=== PATIENT | female | born 1965 | race Caucasian/White ===

== ENCOUNTER 2018-10-24 16:59 | Emergency (ER) | payer MEDICAID ==
[2018-10-24] MEDS: ONDANSETRON 4 MG INJ IV (17:45)
[2018-10-24] MEDS: SOD CHLORIDE 0.9% 500 ML IV (17:45)
[2018-10-24] MEDS: HYDROmorphONE 1 MG/ML SYG IV (17:45)
[2018-10-24 17:53] LABS: HEMOGLOBIN 14.1 g/dl (12.0-16.0); MEAN CORPUSCULAR HEMOGLOBIN 29.1 pg (29.0-33.0); MEAN CORPUSCULAR HGB CONC 32.8 g/dl (32.0-37.0); MEAN CORPUSCULAR VOLUME 88.7 fl (82.0-101.0); MEAN PLATELET VOLUME 9.7 fl (7.4-10.4); PLATELET COUNT 209 10^3/UL (140-415); RED BLOOD COUNT 4.85 10^6/ul (4.20-5.40); RED CELL DISTRIBUTION WIDTH 13.1 % (11.5-14.5)
[2018-10-24 18:02] LABS: POSITIVE DIFF @See below
[2018-10-24 18:03] LABS: ADD MAN DIFF? YES
[2018-10-24 18:06] LABS: CHLORIDE 102 mmol/L (97-110)
[2018-10-24 18:09] LABS: ALANINE AMINOTRANSFERASE 26 IU/L (13-69); ALBUMIN 4.4 g/dl (3.3-4.9); ALBUMIN/GLOBULIN RATIO 1.18; ALKALINE PHOSPHATASE 109 IU/L (42-121); ANION GAP 9 (5-13); ASPARTATE AMINO TRANSFERASE 27 IU/L (15-46); BILIRUBIN,INDIRECT 0.8 mg/dl (0-1.1); BILIRUBIN,TOTAL 0.8 mg/dl (0.2-1.3); BLOOD UREA NITROGEN 16 mg/dl (7-20); CALCIUM 9.5 mg/dl (8.4-10.2); CARBON DIOXIDE 27 mmol/L (21-31); CREATININE 0.71 mg/dl (0.44-1.00); Estimated GFR > 60 mL/min (>60); GLUCOSE 108 mg/dl (70-220); LIPASE 59 U/L (23-300); POTASSIUM 4.2 mmol/L (3.5-5.1); SODIUM 138 mmol/L (135-144); TOTAL PROTEIN 8.1 g/dl (6.1-8.1)
[2018-10-24 18:12] LABS: ADD UMIC YES; UR ASCORBIC ACID NEGATIVE (NEGATIVE); UR BACTERIA FEW /HPF (NONE SEEN); UR BILIRUBIN (Dip) NEGATIVE (NEGATIVE); UR BLOOD (Dip) NEGATIVE (NEGATIVE); UR CLARITY SLIGHTLY CLOUDY (CLEAR); UR COLOR YELLOW (YELLOW); UR GLUCOSE (Dip) NEGATIVE (NEGATIVE); UR KETONES (Dip) NEGATIVE (NEGATIVE); UR LEUKOCYTE ESTERASE (Dip) 3+ Leu/ul (NEGATIVE); UR NITRITE (Dip) NEGATIVE (NEGATIVE); UR NONSQUAMOUS EPITHELIAL CELL 2 /HPF (NONE SEEN); UR RBC 2 /HPF (0-5); UR SPECIFIC GRAVITY (Dip) 1.018 (1.003-1.030); UR SQUAMOUS EPITHELIAL CELL MANY /HPF (FEW); UR TOTAL PROTEIN (Dip) NEGATIVE (NEGATIVE); UR UROBILINOGEN (Dip) NEGATIVE (NEGATIVE); UR WBC 8 /HPF (0-5)
[2018-10-24 19:18] LABS: BAND NEUTROPHILS #M 0.3 10^3/ul (0.0-0.6); BAND NEUTROPHILS % (M) 5 % (0-4); LYMPHOCYTES #M 1.8 10^3/ul (0.8-2.9); LYMPHOCYTES % (M) 26 % (15-51); METAMYELOCYTES #M 0.1 10^3/ul (0.0-0.0); METAMYELOCYTES %M 2 % (0-0); MONOCYTE #M 0.1 10^3/ul (0.3-0.9); MONOCYTES % (M) 2 % (0-11); PLATELET ESTIMATE NORMAL; SEG NEUT #M 4.6 10^3/ul (1.6-7.5); SEGMENTED NEUTROPHILS (M) % 65 % (39-77); SMUDGE%M 4 % (0-0)
[2018-10-24] MEDS: CEFTRIAXONE 1 GM/50 ML (PMX) 50 ML IVPB (20:40)
[2018-10-24] MEDS: KETOROLAC 15 MG INJ IV (21:12)
== END 2018-10-24 22:50 | disposition home or self-care (01) ==
LOC: E/R 16:59
DX: R10.31 Right lower quadrant pain (principal)
CPT/HCPCS: 36415; 71045; 74176; 76705; 80053; 81001; 83690; 85025; 87086; 96374; 96375; 99285-25

== ENCOUNTER 2018-10-26 17:36 | Inpatient (IN) | payer MEDICAID ==
[2018-10-26] MEDS: HYDROmorphONE 1 MG/ML SYG IV (19:42)
[2018-10-26 19:44] LABS: HEMATOCRIT 38.8 % (37.0-47.0); HEMOGLOBIN 12.9 g/dl (12.0-16.0); MEAN CORPUSCULAR HEMOGLOBIN 29.3 pg (29.0-33.0); MEAN CORPUSCULAR HGB CONC 33.2 g/dl (32.0-37.0); MEAN PLATELET VOLUME 9.7 fl (7.4-10.4); PLATELET COUNT 172 10^3/UL (140-415); RED BLOOD COUNT 4.41 10^6/ul (4.20-5.40); RED CELL DISTRIBUTION WIDTH 12.9 % (11.5-14.5)
[2018-10-26 19:44] LABS: WHITE BLOOD COUNT 5.2 10^3/ul (4.8-10.8)
[2018-10-26 19:50] LABS: ADD MAN DIFF? YES; POSITIVE DIFF @See below
[2018-10-26 20:12] LABS: BAND NEUTROPHILS #M 0.5 10^3/ul (0.0-0.6); BAND NEUTROPHILS % (M) 11 % (0-4); BASOPHILS % (M) 1 % (0-2); EOSINOPHILS % (M) 1 % (0-7); GIANT THROMBO% (M) 1 % (0-0); LYMPHOCYTES #M 1.1 10^3/ul (0.8-2.9); LYMPHOCYTES % (M) 22 % (15-51); MONOCYTE #M 0.1 10^3/ul (0.3-0.9); MONOCYTES % (M) 2 % (0-11); PLATELET ESTIMATE NORMAL; REACTIVE LYMPHOCYTES #M 0.2 10^3/ul (0.0-0.0); REACTIVE LYMPHOCYTES% (M) 4 % (0-0); SEG NEUT #M 3.1 10^3/ul (1.6-7.5); SEGMENTED NEUTROPHILS (M) % 59 % (39-77); SMUDGE%M 1 % (0-0)
[2018-10-26 20:13] LABS: ANION GAP 9 (5-13); BLOOD UREA NITROGEN 13 mg/dl (7-20); CALCIUM 9.3 mg/dl (8.4-10.2); CARBON DIOXIDE 30 mmol/L (21-31); CHLORIDE 98 mmol/L (97-110); CREATININE 0.72 mg/dl (0.44-1.00); Estimated GFR > 60 mL/min (>60); GLUCOSE 128 mg/dl (70-220); POTASSIUM 4.3 mmol/L (3.5-5.1); SODIUM 137 mmol/L (135-144)
[2018-10-26 20:24] LABS: C-REACTIVE PROTEIN 13.8 mg/dl (0.0-0.9)
[2018-10-26] MEDS: KETOROLAC 30 MG INJ IV (22:22)
[2018-10-26] MEDS ORDERED: NACL 0.9% 3 ML SYG IV (22:30)
[2018-10-26] MEDS ORDERED: DOCUSATE SODIUM 100 MG CAP PO (22:30)
[2018-10-26] MEDS: KETOROLAC 15 MG INJ IV (22:50)
[2018-10-27 01:16] LABS: LACTIC ACID 0.9 mmol/L (0.5-2.0)
[2018-10-27 02:24] LABS: ERYTHROCYTE SEDIMENTATION RATE 47 mm/Hr (0-30)
[2018-10-27] MEDS: HYDROCODONE/APAP (10/325) TAB PO ×2 (03:22→08:46)
[2018-10-27 05:39] LABS: HEMATOCRIT 35.8 % (37.0-47.0); HEMOGLOBIN 11.8 g/dl (12.0-16.0); MEAN CORPUSCULAR HEMOGLOBIN 29.4 pg (29.0-33.0); MEAN CORPUSCULAR VOLUME 89.1 fl (82.0-101.0); MEAN PLATELET VOLUME 9.8 fl (7.4-10.4); PLATELET COUNT 146 10^3/UL (140-415); RED BLOOD COUNT 4.02 10^6/ul (4.20-5.40); RED CELL DISTRIBUTION WIDTH 13.1 % (11.5-14.5)
[2018-10-27 05:39] LABS: WHITE BLOOD COUNT 3.6 10^3/ul (4.8-10.8)
[2018-10-27 05:42] LABS: ADD MAN DIFF? YES; POSITIVE DIFF @See below
[2018-10-27] MEDS ORDERED: KETOROLAC 30 MG INJ IV (06:00)
[2018-10-27 06:05] LABS: ALANINE AMINOTRANSFERASE 28 IU/L (13-69); ALBUMIN 3.6 g/dl (3.3-4.9); ALBUMIN/GLOBULIN RATIO 1.28; ALKALINE PHOSPHATASE 99 IU/L (42-121); ANION GAP 8 (5-13); ASPARTATE AMINO TRANSFERASE 29 IU/L (15-46); BILIRUBIN,INDIRECT 0.7 mg/dl (0-1.1); BILIRUBIN,TOTAL 0.7 mg/dl (0.2-1.3); BLOOD UREA NITROGEN 18 mg/dl (7-20); CALCIUM 9.1 mg/dl (8.4-10.2); CARBON DIOXIDE 30 mmol/L (21-31); CHLORIDE 100 mmol/L (97-110); CHOL/HDL RATIO 4.5 RATIO; CHOLESTEROL 154 mg/dl (100-200); CREATININE 0.92 mg/dl (0.44-1.00); Estimated GFR > 60 mL/min (>60); GLUCOSE 110 mg/dl (70-220); HDL CHOLESTEROL 34 mg/dl (37-92); LDL CHOLESTEROL,CALCULATED 93 mg/dl; MAGNESIUM 2.1 mg/dl (1.7-2.5); POTASSIUM 4.3 mmol/L (3.5-5.1); SODIUM 138 mmol/L (135-144); TOTAL PROTEIN 6.4 g/dl (6.1-8.1); TRIGLYCERIDES 135 mg/dl (0-149)
[2018-10-27 06:47] LABS: ANISOCYTOSIS 2+ (0-0); BASOPHILS % (M) 1 % (0-2); GIANT THROMBO% (M) 1 % (0-0); LYMPHOCYTES #M 1.4 10^3/ul (0.8-2.9); LYMPHOCYTES % (M) 39 % (15-51); MICROCYTOSIS 1+ (0-0); MONOCYTES % (M) 2 % (0-11); MYELOCYTES % (M) 2 % (0-0); PLATELET ESTIMATE NORMAL; POLYCHROMASIA 1+ (0-0); REACTIVE LYMPHOCYTES% (M) 2 % (0-0); SEGMENTED NEUTROPHILS (M) % 54 % (39-77); SMUDGE%M 5 % (0-0)
[2018-10-27 06:57] LABS: HIV 1&2 ANTIBODY NEGATIVE (NEGATIVE)
[2018-10-27 07:01] LABS: HEMOGLOBIN A1C 6.1 % (0-5.9)
[2018-10-27] MEDS: HYDROmorphONE 0.5 MG/0.5 ML SYG IV ×2 (07:29→22:53)
[2018-10-27] MEDS: SOD CHLORIDE 0.9% 100 ML (08:23)
[2018-10-27] MEDS: IOHEXOL 300MG/ML 150 ML BTL (08:23)
[2018-10-27] MEDS ORDERED: morphine 2 MG INJ IV (09:30)
[2018-10-27] MEDS: DOCUSATE SODIUM 100 MG CAP PO ×2 (09:37→22:51)
[2018-10-27] MEDS: POLYETHYLENE GLYCOL 17 GM PACKET PO (09:37)
[2018-10-27] MEDS: predniSONE 20 MG TAB PO (09:38)
[2018-10-27] MEDS: FAMOTIDINE 20 MG TAB PO ×2 (09:38→22:45)
[2018-10-27 09:57] LABS: ADD UMIC NO; UR ASCORBIC ACID NEGATIVE (NEGATIVE); UR BILIRUBIN (Dip) NEGATIVE (NEGATIVE); UR BLOOD (Dip) NEGATIVE (NEGATIVE); UR CLARITY CLEAR (CLEAR); UR COLOR STRAW (YELLOW); UR GLUCOSE (Dip) NEGATIVE (NEGATIVE); UR KETONES (Dip) NEGATIVE (NEGATIVE); UR LEUKOCYTE ESTERASE (Dip) NEGATIVE Leu/ul (NEGATIVE); UR NITRITE (Dip) NEGATIVE (NEGATIVE); UR SPECIFIC GRAVITY (Dip) 1.008 (1.003-1.030); UR TOTAL PROTEIN (Dip) NEGATIVE (NEGATIVE); UR UROBILINOGEN (Dip) NEGATIVE (NEGATIVE)
[2018-10-27 10:10] LABS: HEMATOCRIT 35.6 % (37.0-47.0); HEMOGLOBIN 11.8 g/dl (12.0-16.0); MEAN CORPUSCULAR HEMOGLOBIN 29.3 pg (29.0-33.0); MEAN CORPUSCULAR HGB CONC 33.1 g/dl (32.0-37.0); MEAN CORPUSCULAR VOLUME 88.3 fl (82.0-101.0); MEAN PLATELET VOLUME 9.8 fl (7.4-10.4); PLATELET COUNT 148 10^3/UL (140-415); RED BLOOD COUNT 4.03 10^6/ul (4.20-5.40)
[2018-10-27 10:10] LABS: WHITE BLOOD COUNT 3.4 10^3/ul (4.8-10.8)
[2018-10-27 10:12] LABS: ADD MAN DIFF? YES; POSITIVE DIFF @See below
[2018-10-27 10:29] LABS: ANION GAP 10 (5-13); ANISOCYTOSIS 1+ (0-0); BASOPHIL #M 0.1 10^3/ul (0.0-0.0); BASOPHILS % (M) 3 % (0-2); BLOOD UREA NITROGEN 16 mg/dl (7-20); CARBON DIOXIDE 29 mmol/L (21-31); CHLORIDE 98 mmol/L (97-110); CREATININE 0.82 mg/dl (0.44-1.00); Estimated GFR > 60 mL/min (>60); GIANT THROMBO% (M) 1 % (0-0); GLUCOSE 143 mg/dl (70-220); LYMPHOCYTES #M 1.5 10^3/ul (0.8-2.9); LYMPHOCYTES % (M) 45 % (15-51); MICROCYTOSIS 1+ (0-0); MONOCYTE #M 0.1 10^3/ul (0.3-0.9); MONOCYTES % (M) 3 % (0-11); PLATELET ESTIMATE NORMAL; POTASSIUM 4.3 mmol/L (3.5-5.1); REACTIVE LYMPHOCYTES% (M) 1 % (0-0); SEGMENTED NEUTROPHILS (M) % 48 % (39-77); SMUDGE%M 17 % (0-0); SODIUM 137 mmol/L (135-144)
[2018-10-27 10:35] LABS: AMPHETAMINE/METHAMPHETAMINE Negative (NEGATIVE); BARBITURATES Negative (NEGATIVE); BENZODIAZEPINES Negative (NEGATIVE); CANNABINOIDS Negative (NEGATIVE); COCAINE Negative (NEGATIVE)
[2018-10-27 10:46] LABS: OPIATES Positive (NEGATIVE)
[2018-10-27] MEDS: IBUPROFEN 600 MG TAB PO ×2 (11:55→17:28)
[2018-10-27] MEDS: oxyCODONE (CR) 10 MG TAB [oxyCONTIN] PO ×2 (11:55→22:44)
[2018-10-27 15:22] LABS: RAPID PLASMA REAGIN NONREACTIVE (NR)
[2018-10-27] MEDS ORDERED: VITAMIN A & D 5 GM OINT PACKET TOP (20:13)
[2018-10-27] MEDS: ONDANSETRON 4 MG TAB PO (22:51)
[2018-10-28] MEDS: IBUPROFEN 600 MG TAB PO (00:33)
[2018-10-28] MEDS: HYDROmorphONE 0.5 MG/0.5 ML SYG IV ×5 (01:45→21:02)
[2018-10-28] MEDS: HYDROmorphONE 1 MG/ML SYG IV ×2 (02:49→04:53)
[2018-10-28] MEDS: DIAZEPAM 5 MG/ML SYG IV (03:29)
[2018-10-28] MEDS ORDERED: DEXAMETHASONE 10 MG/ML 1 ML INJ IV (04:30)
[2018-10-28] MEDS: DEXAMETHASONE 10 MG/ML 1 ML INJ IV (04:37)
[2018-10-28] MEDS: METHYLPRED. NA SUCC 1,000 MG in DEXTROSE 5% 50 ML IVPB (04:52)
[2018-10-28] MEDS: KETOROLAC 30 MG INJ IV (05:28)
[2018-10-28] MEDS: CYCLOBENZAPRINE 10 MG TAB PO (05:49)
[2018-10-28] MEDS ORDERED: CYCLOBENZAPRINE 10 MG TAB PO (06:00)
[2018-10-28] MEDS: FAMOTIDINE 20 MG TAB PO ×2 (08:34→21:02)
[2018-10-28] MEDS: POLYETHYLENE GLYCOL 17 GM PACKET PO (08:34)
[2018-10-28] MEDS: ACETAMINOPHEN 1000MG/100ML IV 100 ML IVPB ×3 (08:34→18:41)
[2018-10-28] MEDS: DOCUSATE SODIUM 100 MG CAP PO ×2 (08:35→21:02)
[2018-10-28] MEDS: predniSONE 20 MG TAB PO (08:35)
[2018-10-28] MEDS: oxyCODONE (CR) 10 MG TAB [oxyCONTIN] PO ×2 (08:47→20:54)
[2018-10-28] MEDS: CELECOXIB 100 MG CAP PO ×2 (08:51→20:54)
[2018-10-28] MEDS: PANTOPRAZOLE 40 MG INJ IV (08:51)
[2018-10-28] MEDS: GABAPENTIN 100 MG CAP PO ×3 (08:51→20:54)
[2018-10-28] MEDS: BACLOFEN 10 MG TAB PO ×3 (08:51→20:55)
[2018-10-28] MEDS: LIDOCAINE 5% PATCH TD (10:42)
[2018-10-28] MEDS: IBUPROFEN 800 MG TAB PO ×2 (13:08→18:41)
[2018-10-28] MEDS: BISACODYL 10 MG SUPP PR (20:51)
[2018-10-29] MEDS: ACETAMINOPHEN 1000MG/100ML IV 100 ML IVPB (00:23)
[2018-10-29] MEDS: IBUPROFEN 800 MG TAB PO ×4 (00:30→18:00)
[2018-10-29] MEDS: HYDROmorphONE 0.5 MG/0.5 ML SYG IV ×5 (02:06→16:23)
[2018-10-29] MEDS: HYDROmorphONE 1 MG/ML SYG IV ×2 (04:19→19:09)
[2018-10-29 05:30] LABS: WHITE BLOOD COUNT 8.3 10^3/ul (4.8-10.8)
[2018-10-29 05:30] LABS: ABNORMAL IP MESSAGE 1; HEMATOCRIT 38.7 % (37.0-47.0); MEAN CORPUSCULAR HEMOGLOBIN 29.1 pg (29.0-33.0); MEAN CORPUSCULAR HGB CONC 33.6 g/dl (32.0-37.0); MEAN CORPUSCULAR VOLUME 86.8 fl (82.0-101.0); MEAN PLATELET VOLUME 9.6 fl (7.4-10.4); NUCLEATED RED BLOOD CELLS% 0.2 /100WBC (0.0-0.0); PLATELET COUNT 141 10^3/UL (140-415); RED BLOOD COUNT 4.46 10^6/ul (4.20-5.40); RED CELL DISTRIBUTION WIDTH 13.2 % (11.5-14.5)
[2018-10-29 05:35] LABS: POSITIVE DIFF @See below
[2018-10-29 05:36] LABS: ADD MAN DIFF? YES
[2018-10-29 06:09] LABS: ANION GAP 9 (5-13); BLOOD UREA NITROGEN 22 mg/dl (7-20); CALCIUM 9.5 mg/dl (8.4-10.2); CARBON DIOXIDE 30 mmol/L (21-31); CHLORIDE 100 mmol/L (97-110); CREATININE 0.83 mg/dl (0.44-1.00); Estimated GFR > 60 mL/min (>60); GLUCOSE 160 mg/dl (70-220); POTASSIUM 5.4 mmol/L (3.5-5.1); SODIUM 139 mmol/L (135-144)
[2018-10-29 07:27] LABS: ANISOCYTOSIS 1+ (0-0); BAND NEUTROPHILS #M 1.6 10^3/ul (0.0-0.6); BAND NEUTROPHILS % (M) 20 % (0-4); ERYTHROBLAST% (NRBC) (M) 1 % (0-0); GIANT THROMBO% (M) 1 % (0-0); LYMPHOCYTES #M 1.9 10^3/ul (0.8-2.9); LYMPHOCYTES % (M) 24 % (15-51); MICROCYTOSIS 1+ (0-0); MONOCYTE #M 0.1 10^3/ul (0.3-0.9); MONOCYTES % (M) 2 % (0-11); PLATELET ESTIMATE NORMAL; POLYCHROMASIA 1+ (0-0); REACTIVE LYMPHOCYTES #M 0.6 10^3/ul (0.0-0.0); REACTIVE LYMPHOCYTES% (M) 8 % (0-0); SEGMENTED NEUTROPHILS (M) % 46 % (39-77); SMUDGE%M 5 % (0-0)
[2018-10-29] MEDS: oxyCODONE (CR) 10 MG TAB [oxyCONTIN] PO ×2 (07:50→20:32)
[2018-10-29] MEDS: FAMOTIDINE 20 MG TAB PO ×2 (09:24→20:31)
[2018-10-29] MEDS: BACLOFEN 10 MG TAB PO ×3 (09:25→20:31)
[2018-10-29] MEDS: POLYETHYLENE GLYCOL 17 GM PACKET PO (09:25)
[2018-10-29] MEDS: CELECOXIB 100 MG CAP PO ×2 (09:25→20:32)
[2018-10-29] MEDS: DOCUSATE SODIUM 100 MG CAP PO ×2 (09:25→20:31)
[2018-10-29] MEDS: GABAPENTIN 100 MG CAP PO ×3 (09:25→21:14)
[2018-10-29] MEDS: predniSONE 20 MG TAB PO (09:25)
[2018-10-29] MEDS: ALPRAZOLAM 0.5 MG TAB PO (14:53)
[2018-10-29] MEDS: NA PHOSPHATE/BIPHOS 133 ML ENEMA PR (16:22)
[2018-10-29] MEDS: NA POLYST SULFON 15 GM/60 ML BTL PO (23:25)
[2018-10-30] MEDS: HYDROmorphONE 1 MG/ML SYG IV ×3 (01:59→14:24)
[2018-10-30] MEDS: IBUPROFEN 800 MG TAB PO ×4 (04:47→17:53)
[2018-10-30] MEDS: ALPRAZOLAM 0.5 MG TAB PO (04:47)
[2018-10-30] MEDS: DOCUSATE SODIUM 100 MG CAP PO ×2 (08:33→20:13)
[2018-10-30] MEDS: BACLOFEN 10 MG TAB PO ×3 (08:34→20:14)
[2018-10-30] MEDS: FAMOTIDINE 20 MG TAB PO ×2 (08:35→20:14)
[2018-10-30] MEDS: predniSONE 20 MG TAB PO (08:35)
[2018-10-30] MEDS: CELECOXIB 100 MG CAP PO ×2 (08:35→20:13)
[2018-10-30] MEDS: GABAPENTIN 100 MG CAP PO (08:35)
[2018-10-30] MEDS: POLYETHYLENE GLYCOL 17 GM PACKET PO (08:35)
[2018-10-30] MEDS: oxyCODONE (CR) 10 MG TAB [oxyCONTIN] PO ×2 (08:36→20:14)
[2018-10-30 09:10] LABS: ANION GAP 9 (5-13); BLOOD UREA NITROGEN 21 mg/dl (7-20); CALCIUM 8.7 mg/dl (8.4-10.2); CARBON DIOXIDE 34 mmol/L (21-31); CHLORIDE 98 mmol/L (97-110); Estimated GFR > 60 mL/min (>60); GLUCOSE 202 mg/dl (70-220); MAGNESIUM 1.9 mg/dl (1.7-2.5); SODIUM 141 mmol/L (135-144)
[2018-10-30 09:41] LABS: ERYTHROCYTE SEDIMENTATION RATE 37 mm/Hr (0-30)
[2018-10-30 10:04] LABS: C-REACTIVE PROTEIN 24.4 mg/dl (0.0-0.9)
[2018-10-30] MEDS: NALOXONE (0.4 MG/ML) INJ IV (13:44)
[2018-10-30] MEDS: GABAPENTIN 400 MG CAP PO ×2 (13:56→20:14)
[2018-10-30] MEDS: BISACODYL (EC) 5 MG TAB PO (20:17)
[2018-10-31] MEDS: IBUPROFEN 800 MG TAB PO ×2 (00:30→06:44)
[2018-10-31] MEDS: HYDROmorphONE 1 MG/ML SYG IV ×4 (01:16→17:37)
[2018-10-31] MEDS: CELECOXIB 100 MG CAP PO (08:32)
[2018-10-31] MEDS: DOCUSATE SODIUM 100 MG CAP PO ×2 (08:33→20:42)
[2018-10-31] MEDS: BACLOFEN 10 MG TAB PO ×3 (08:34→20:42)
[2018-10-31] MEDS: POLYETHYLENE GLYCOL 17 GM PACKET PO (08:34)
[2018-10-31] MEDS: GABAPENTIN 400 MG CAP PO (08:34)
[2018-10-31] MEDS: oxyCODONE (CR) 10 MG TAB [oxyCONTIN] PO ×2 (08:35→20:42)
[2018-10-31] MEDS: FAMOTIDINE 20 MG TAB PO ×2 (08:35→20:42)
[2018-10-31] MEDS: predniSONE 10 MG TAB PO (08:36)
[2018-10-31] MEDS: ALPRAZOLAM 0.5 MG TAB PO (11:36)
[2018-10-31] MEDS: GABAPENTIN 300 MG CAP PO ×2 (12:42→20:42)
[2018-10-31] MEDS: ACCU-CHEK XX ×2 (12:47→17:35)
[2018-10-31] MEDS ORDERED: GLUCOSE GEL 15 GRAM TUBE BUCCAL (14:30)
[2018-10-31] MEDS ORDERED: DEXTROSE 50% 50 ML SYRINGE IV ×2 (14:30)
[2018-10-31] MEDS ORDERED: GLUCOSE GEL 15 GRAM TUBE PO ×2 (14:30)
[2018-10-31] MEDS ORDERED: GLUCAGON 1 MG INJ IM (14:30)
[2018-10-31] MEDS: ACETAMINOPHEN 325 MG TAB PO ×2 (16:09→23:28)
[2018-10-31] MEDS: metFORMIN 500 MG TAB PO (17:34)
[2018-10-31] MEDS: CELECOXIB 200 MG CAP PO (20:41)
[2018-11-01] MEDS: HYDROmorphONE 1 MG/ML SYG IV ×2 (01:37→07:01)
[2018-11-01] MEDS: ALPRAZOLAM 0.5 MG TAB PO (05:48)
[2018-11-01] MEDS: CELECOXIB 200 MG CAP PO (09:13)
[2018-11-01] MEDS: GABAPENTIN 300 MG CAP PO ×3 (09:14→12:30)
[2018-11-01] MEDS: predniSONE 20 MG TAB PO (09:14)
[2018-11-01] MEDS: FAMOTIDINE 20 MG TAB PO (09:14)
[2018-11-01] MEDS: BACLOFEN 10 MG TAB PO ×2 (09:14→12:02)
[2018-11-01] MEDS: DOCUSATE SODIUM 100 MG CAP PO (09:14)
[2018-11-01] MEDS: POLYETHYLENE GLYCOL 17 GM PACKET PO (09:15)
[2018-11-01] MEDS: ACCU-CHEK XX ×2 (09:50→13:40)
[2018-11-01 11:36] LABS: ANA SCREEN NEGATIVE (NEGATIVE)
[2018-11-01] MEDS: ACETAMINOPHEN 325 MG TAB PO (13:33)
== END 2018-11-01 16:00 | disposition home or self-care (01) | DRG 552 ==
LOC: E/R 17:36 → MS1 22:11
DX: M51.16 Intervertebral disc disorders with radiculopathy, lumbar region (principal); M86.9 Osteomyelitis, unspecified; F45.41 Pain disorder exclusively related to psychological factors; M54.41 Lumbago with sciatica, right side; Z68.39 Body mass index [BMI] 39.0-39.9, adult; E78.5 Hyperlipidemia, unspecified; M94.0 Chondrocostal junction syndrome [Tietze]; E88.81 Metabolic syndrome and other insulin resistance; R10.11 Right upper quadrant pain; R73.03 Prediabetes; K59.00 Constipation, unspecified; E66.01 Morbid (severe) obesity due to excess calories; M51.46 Schmorl's nodes, lumbar region; E87.5 Hyperkalemia
CPT/HCPCS: 36415; 70450; 72146; 72147; 72148; 72149; 74177; 80048; 80053; 80061; 80307; 81003; 82962; 83036; 83605; 83735; 84439; 84443; 85025; 85651; 86038; 86140; 86592; 86703; 87040; 96374; 97110; 97116; 97161; 97530; 99285-25